=== PATIENT | female | born 1945 | race Caucasian/White ===

== ENCOUNTER 2022-09-10 15:10 | Inpatient (IN) ==
[2022-09-10 15:33] LABS: Basophils # 0.1 10*3/uL (0.0-0.2); Basophils % 0.5 % (0.0-0.8); Eosinophils % 0.2 % (0.00-10.9); Hematocrit 38.5 VOL% (35.7-47.0); Hemoglobin 12.5 GM/DL (12.0-16.0); Immature Granulocytes % 3.9 %; Immature Granulocytes Absolute 0.57 #; Lymphocytes # 2.2 10*3/uL (1.4-4.0); Lymphocytes % 14.8 % (21.3-54.2); Mean Corpuscular HGB Conc 32.5 GM/DL (32-36); Mean Corpuscular Volume 86.1 FL (87-102); Mean Platelet Volume 11.3 FL (9.6-12.0); Monocytes # 1.3 10*3/uL (0.11-0.8); Monocytes % 9.1 % (1.7-12.7); Neutrophils % 71.5 % (38.7-73.9); Platelet Count 333 T/CUMM (130-400); Red Blood Count 4.47 MC/CUMM (3.8-5.5); Red Cell Distribution Width 13.4 % (9.3-17.3); White Blood Count 14.6 T/CUMM (4-12)
[2022-09-10 15:47] LABS: Albumin 2.2 G/DL (3.4-5.0); Bilirubin,Total 0.6 MG/DL (0.20-1.00); Calcium 8.4 MG/DL (8.5-10.1); Osmolality,Calculated 295.8 MOS/KG (273-304); Potassium 3.1 MMOL/L (3.5-5.1); Total Protein 6.2 G/DL (6.4-8.2)
[2022-09-10 16:22] LABS: Lymphocytes 19 % (20-55); Platelet Estimate Normal; Polychromasia Slight; Total Cells Counted 100
[2022-09-10 16:26] LABS: Ovalocytes Slight
[2022-09-10] MEDS ORDERED: PIPERACILLIN/TAZOBACTAM 3,375 MG in SODIUM CHLORIDE 0.9% 100 ML IV STA (16:59)
[2022-09-10] MEDS ORDERED: hydrALAZINE 20 MG/1 ML VIAL IV STA (17:19)
[2022-09-10] MEDS ORDERED: ONDANSETRON 4 MG/2 ML VIAL IV PRN (18:26)
[2022-09-10] MEDS ORDERED: guaiFENesin/CODEINE 5 ML LIQUID PO PRN (18:35)
[2022-09-10] MEDS: SODIUM CHLORIDE 0.9% 1,000 ML IV SCH (18:40)
[2022-09-10] MEDS ORDERED: POTASSIUM BICARB EFFERVESCENT 20 MEQ TAB.EFF PO ONE (18:45)
[2022-09-10] MEDS: ALBUTEROL 2.5 MG/3 ML NEB RESP TX SCH (18:50)
[2022-09-10] MEDS: ACETAMINOPHEN 325 MG TABLET PO PRN (20:00)
[2022-09-10] MEDS: ENOXAPARIN 40 MG/0.4 ML SYRINGE SUBCUT SCH (22:53)
[2022-09-10] MEDS: MIRTAZAPINE 15 MG TABLET PO SCH (22:53)
[2022-09-10] MEDS: CARBIDOPA/LEVODOPA 25-100 MG TABLET PO SCH ×2 (22:53)
[2022-09-10 23:59] LABS: INR 1.1; PT Patient Result 12.4 SECS (10.1-12.1)
[2022-09-11] MEDS: ALBUTEROL 2.5 MG/3 ML NEB RESP TX SCH ×4 (00:23→19:20)
[2022-09-11] MEDS: PIPERACILLIN/TAZOBACTAM 3,375 MG in SODIUM CHLORIDE 0.9% 100 ML IV SCH ×2 (02:47→21:08)
[2022-09-11 06:23] LABS: Basophils # 0.1 10*3/uL (0.0-0.2); Basophils % 0.6 % (0.0-0.8); Eosinophils # 0.1 10*3/uL (0.0-0.87); Eosinophils % 1.4 % (0.00-10.9); Hematocrit 35.7 VOL% (35.7-47.0); Hemoglobin 11.4 GM/DL (12.0-16.0); Lymphocytes # 3.1 10*3/uL (1.4-4.0); Lymphocytes % 30.5 % (21.3-54.2); Mean Corpuscular HGB Conc 31.9 GM/DL (32-36); Mean Corpuscular Volume 87.9 FL (87-102); Mean Platelet Volume 10.7 FL (9.6-12.0); Monocytes # 0.9 10*3/uL (0.11-0.8); Monocytes % 9.2 % (1.7-12.7); Neutrophils % 54.3 % (38.7-73.9); Platelet Count 391 T/CUMM (130-400); Red Blood Count 4.06 MC/CUMM (3.8-5.5); Red Cell Distribution Width 13.5 % (9.3-17.3); White Blood Count 10.1 T/CUMM (4-12)
[2022-09-11 06:26] LABS: Bilirubin,Urine Small mg/dL (Negative); Blood, Urine Negative (Negative); Glucose,Urine (UA) Negative (Negative); Ketones,Urine 15 mg/dL (Negative); Nitrite,Urine Negative (Negative); Protein,Urine 30 mg/dL (Negative); Urine Appearance Slightly Cloudy (Clear); Urine Color Dark Yellow (Yellow); Urine Specific Gravity > 1.030 (1.001-1.035)
[2022-09-11 06:28] LABS: Amorphous Crystals,Urine Occasional /HPF (Few); Mucus,Urine Occasional /LPF (Occasional); RBC,Urine 4 /HPF (0-4); Squamous Epithelial Cell,Urine Moderate /HPF (0-10)
[2022-09-11 06:50] LABS: Alanine Aminotransferase < 6 U/L (13-56); Alkaline Phosphatase 55 U/L (45-117); Aspartate Amino Transferase 11 U/L (0-37); Blood Urea Nitrogen 26 MG/DL (7-18); Calcium 8.5 MG/DL (8.5-10.1); Carbon Dioxide 27 MMOL/L (21-32); Chloride 110 MMOL/L (98-107); Cholesterol 94 MG/DL (50-200); Glucose 138 MG/DL (74-106); HDL Cholesterol 24 MG/DL (40-60); Osmolality,Calculated 294.7 MOS/KG (273-304); Potassium 2.9 MMOL/L (3.5-5.1); Risk Ratio 3.92; Sodium 145 MMOL/L (136-145); Thyroid Stimulating Hormone 0.848 uIU/ml (0.358-3.74); Total Protein 6.4 G/DL (6.4-8.2); Triglycerides 93 MG/DL (2-150); VLDL Cholesterol 18.6 MG/DL
[2022-09-11] MEDS ORDERED: SPIRONOLACTONE 25 MG TABLET PO SCH (09:00)
[2022-09-11] MEDS: POTASSIUM CHLORIDE RIDER 10 MEQ/100 ML PREMIX IV PRN ×5 (09:27→17:24)
[2022-09-11] MEDS ORDERED: POTASSIUM BICARB EFFERVESCENT 20 MEQ TAB.EFF PO ONE (09:30)
[2022-09-11] MEDS: SODIUM CHLORIDE 0.9% 1,000 ML IV SCH (10:00)
[2022-09-11] MEDS: PANTOPRAZOLE 40 MG TABLET PO SCH (15:11)
[2022-09-11] MEDS: ALPRAZolam 0.25 MG TABLET PO SCH ×3 (15:11→21:47)
[2022-09-11] MEDS: CARBIDOPA/LEVODOPA 25-100 MG TABLET PO SCH ×4 (15:12→23:45)
[2022-09-11] MEDS: lisinopriL 20 MG TABLET PO SCH (15:12)
[2022-09-11] MEDS: AMANTADINE 100 MG CAPSULE PO SCH ×2 (15:12→21:08)
[2022-09-11] MEDS: INSULIN LISPRO 100 UNIT/ML SUBCUT SCH (17:16)
[2022-09-11] MEDS: MIRTAZAPINE 15 MG TABLET PO SCH (21:08)
[2022-09-11] MEDS: ENOXAPARIN 40 MG/0.4 ML SYRINGE SUBCUT SCH (21:08)
[2022-09-12] MEDS: ALBUTEROL 2.5 MG/3 ML NEB RESP TX SCH ×4 (00:04→19:37)
[2022-09-12] MEDS: INSULIN LISPRO 100 UNIT/ML SUBCUT SCH ×4 (00:37→18:48)
[2022-09-12] MEDS: SODIUM CHLORIDE 0.9% 1,000 ML IV SCH ×2 (02:14→15:47)
[2022-09-12] MEDS: PIPERACILLIN/TAZOBACTAM 3,375 MG in SODIUM CHLORIDE 0.9% 100 ML IV SCH ×2 (04:15→20:54)
[2022-09-12 05:28] LABS: Alanine Aminotransferase < 6 U/L (13-56); Albumin 2.1 G/DL (3.4-5.0); Alkaline Phosphatase 53 U/L (45-117); Aspartate Amino Transferase 9 U/L (0-37); Blood Urea Nitrogen 19 MG/DL (7-18); Calcium 8.6 MG/DL (8.5-10.1); Carbon Dioxide 27 MMOL/L (21-32); Chloride 110 MMOL/L (98-107); Glucose 108 MG/DL (74-106); Osmolality,Calculated 290.7 MOS/KG (273-304); Potassium 3.4 MMOL/L (3.5-5.1); Sodium 145 MMOL/L (136-145); Total Protein 6.6 G/DL (6.4-8.2)
[2022-09-12] MEDS ORDERED: TUBERCULIN SKIN TEST 0.1 ML SYRINGE INTRADERM ONE (09:30)
[2022-09-12] MEDS: POTASSIUM CHLORIDE RIDER 10 MEQ/100 ML PREMIX IV PRN ×3 (09:43→15:45)
[2022-09-12] MEDS: ALPRAZolam 0.25 MG TABLET PO SCH ×2 (09:44→20:55)
[2022-09-12] MEDS: lisinopriL 20 MG TABLET PO SCH (09:44)
[2022-09-12] MEDS: CARBIDOPA/LEVODOPA 25-100 MG TABLET PO SCH ×4 (09:44→20:56)
[2022-09-12] MEDS: PANTOPRAZOLE 40 MG TABLET PO SCH (09:44)
[2022-09-12] MEDS: AMANTADINE 100 MG CAPSULE PO SCH ×2 (09:44→20:56)
[2022-09-12] MEDS ORDERED: amLODIPine 5 MG TABLET PO ONE (13:15)
[2022-09-12] MEDS: ENOXAPARIN 40 MG/0.4 ML SYRINGE SUBCUT SCH (20:55)
[2022-09-12] MEDS: MIRTAZAPINE 15 MG TABLET PO SCH (20:56)
[2022-09-13] MEDS: ALBUTEROL 2.5 MG/3 ML NEB RESP TX SCH ×5 (00:33→23:52)
[2022-09-13] MEDS: INSULIN LISPRO 100 UNIT/ML SUBCUT SCH ×4 (01:04→17:41)
[2022-09-13] MEDS: PIPERACILLIN/TAZOBACTAM 3,375 MG in SODIUM CHLORIDE 0.9% 100 ML IV SCH ×3 (04:13→21:40)
[2022-09-13] MEDS: hydrALAZINE 20 MG/1 ML VIAL IV PRN (04:46)
[2022-09-13 05:15] LABS: Basophils # 0.1 10*3/uL (0.0-0.2); Basophils % 0.7 % (0.0-0.8); Eosinophils # 0.2 10*3/uL (0.0-0.87); Eosinophils % 2.6 % (0.00-10.9); Hematocrit 34.3 VOL% (35.7-47.0); Hemoglobin 10.7 GM/DL (12.0-16.0); Immature Granulocytes % 2.9 %; Immature Granulocytes Absolute 0.24 #; Lymphocytes # 3.1 10*3/uL (1.4-4.0); Lymphocytes % 36.9 % (21.3-54.2); Mean Corpuscular HGB Conc 31.2 GM/DL (32-36); Mean Corpuscular Volume 89.3 FL (87-102); Mean Platelet Volume 10.3 FL (9.6-12.0); Monocytes # 0.8 10*3/uL (0.11-0.8); Monocytes % 8.9 % (1.7-12.7); Platelet Count 347 T/CUMM (130-400); Red Blood Count 3.84 MC/CUMM (3.8-5.5); Red Cell Distribution Width 13.7 % (9.3-17.3); White Blood Count 8.4 T/CUMM (4-12)
[2022-09-13 05:42] LABS: Alanine Aminotransferase < 6 U/L (13-56); Albumin 1.9 G/DL (3.4-5.0); Alkaline Phosphatase 50 U/L (45-117); Aspartate Amino Transferase 9 U/L (0-37); Blood Urea Nitrogen 13 MG/DL (7-18); Calcium 8.2 MG/DL (8.5-10.1); Carbon Dioxide 27 MMOL/L (21-32); Chloride 110 MMOL/L (98-107); Glucose 115 MG/DL (74-106); Osmolality,Calculated 286.8 MOS/KG (273-304); Potassium 3.4 MMOL/L (3.5-5.1); Sodium 144 MMOL/L (136-145); Total Protein 6.3 G/DL (6.4-8.2)
[2022-09-13] MEDS ORDERED: POTASSIUM BICARB EFFERVESCENT 20 MEQ TAB.EFF PO ONE (07:46)
[2022-09-13] MEDS: AMANTADINE 100 MG CAPSULE PO SCH ×2 (09:58→21:39)
[2022-09-13] MEDS: CARBIDOPA/LEVODOPA 25-100 MG TABLET PO SCH ×4 (09:58→21:39)
[2022-09-13] MEDS: lisinopriL 20 MG TABLET PO SCH (09:58)
[2022-09-13] MEDS: ALPRAZolam 0.25 MG TABLET PO SCH ×2 (09:58→21:39)
[2022-09-13] MEDS: amLODIPine 5 MG TABLET PO SCH (09:58)
[2022-09-13] MEDS: PANTOPRAZOLE 40 MG TABLET PO SCH (09:59)
[2022-09-13] MEDS: SODIUM CHLORIDE 0.9% 1,000 ML IV SCH (12:07)
[2022-09-13] MEDS: ENOXAPARIN 40 MG/0.4 ML SYRINGE SUBCUT SCH (21:39)
[2022-09-13] MEDS: MIRTAZAPINE 15 MG TABLET PO SCH (21:40)
[2022-09-14] MEDS: ALBUTEROL 2.5 MG/3 ML NEB RESP TX SCH ×3 (01:15→19:35)
[2022-09-14] MEDS: INSULIN LISPRO 100 UNIT/ML SUBCUT SCH ×4 (02:38→17:31)
[2022-09-14] MEDS: PIPERACILLIN/TAZOBACTAM 3,375 MG in SODIUM CHLORIDE 0.9% 100 ML IV SCH ×3 (03:36→20:50)
[2022-09-14 06:01] LABS: Basophils # 0.1 10*3/uL (0.0-0.2); Basophils % 0.7 % (0.0-0.8); Eosinophils # 0.2 10*3/uL (0.0-0.87); Eosinophils % 2.7 % (0.00-10.9); Hematocrit 36.1 VOL% (35.7-47.0); Hemoglobin 11.4 GM/DL (12.0-16.0); Immature Granulocytes Absolute 0.14 #; Lymphocytes # 2.6 10*3/uL (1.4-4.0); Lymphocytes % 35.9 % (21.3-54.2); Mean Corpuscular HGB Conc 31.6 GM/DL (32-36); Mean Corpuscular Volume 89.8 FL (87-102); Mean Platelet Volume 10.6 FL (9.6-12.0); Monocytes # 0.7 10*3/uL (0.11-0.8); Monocytes % 9.7 % (1.7-12.7); Platelet Count 337 T/CUMM (130-400); Red Blood Count 4.02 MC/CUMM (3.8-5.5); Red Cell Distribution Width 13.7 % (9.3-17.3); White Blood Count 7.2 T/CUMM (4-12)
[2022-09-14 06:23] LABS: Alanine Aminotransferase < 6 U/L (13-56); Albumin 2.1 G/DL (3.4-5.0); Alkaline Phosphatase 49 U/L (45-117); Aspartate Amino Transferase 15 U/L (0-37); Blood Urea Nitrogen 10 MG/DL (7-18); Calcium 8.5 MG/DL (8.5-10.1); Carbon Dioxide 27 MMOL/L (21-32); Chloride 111 MMOL/L (98-107); Glucose 114 MG/DL (74-106); Osmolality,Calculated 282.1 MOS/KG (273-304); Potassium 3.6 MMOL/L (3.5-5.1); Sodium 142 MMOL/L (136-145); Total Protein 6.4 G/DL (6.4-8.2)
[2022-09-14] MEDS: PANTOPRAZOLE 40 MG TABLET PO SCH (08:45)
[2022-09-14] MEDS: ALPRAZolam 0.25 MG TABLET PO SCH ×2 (08:45→20:50)
[2022-09-14] MEDS: AMANTADINE 100 MG CAPSULE PO SCH ×2 (08:45→20:50)
[2022-09-14] MEDS: amLODIPine 5 MG TABLET PO SCH (08:45)
[2022-09-14] MEDS: lisinopriL 20 MG TABLET PO SCH (08:45)
[2022-09-14] MEDS: CARBIDOPA/LEVODOPA 25-100 MG TABLET PO SCH ×4 (08:45→20:50)
[2022-09-14] MEDS: ACETAMINOPHEN 325 MG TABLET PO PRN (15:48)
[2022-09-14] MEDS: ENOXAPARIN 40 MG/0.4 ML SYRINGE SUBCUT SCH (20:50)
[2022-09-14] MEDS: MIRTAZAPINE 15 MG TABLET PO SCH (20:51)
[2022-09-15] MEDS: ALBUTEROL 2.5 MG/3 ML NEB RESP TX SCH ×3 (00:40→14:11)
[2022-09-15] MEDS: INSULIN LISPRO 100 UNIT/ML SUBCUT SCH ×5 (01:04→23:36)
[2022-09-15] MEDS: PIPERACILLIN/TAZOBACTAM 3,375 MG in SODIUM CHLORIDE 0.9% 100 ML IV SCH ×3 (03:54→20:25)
[2022-09-15 06:25] LABS: Basophils # 0.1 10*3/uL (0.0-0.2); Eosinophils # 0.2 10*3/uL (0.0-0.87); Eosinophils % 3.2 % (0.00-10.9); Hematocrit 35.9 VOL% (35.7-47.0); Hemoglobin 11.6 GM/DL (12.0-16.0); Immature Granulocytes % 1.4 %; Immature Granulocytes Absolute 0.09 #; Lymphocytes # 2.1 10*3/uL (1.4-4.0); Lymphocytes % 33.3 % (21.3-54.2); Mean Corpuscular HGB Conc 32.3 GM/DL (32-36); Mean Corpuscular Volume 87.8 FL (87-102); Mean Platelet Volume 10.7 FL (9.6-12.0); Monocytes # 0.6 10*3/uL (0.11-0.8); Monocytes % 9.2 % (1.7-12.7); Neutrophils % 51.9 % (38.7-73.9); Platelet Count 356 T/CUMM (130-400); Red Blood Count 4.09 MC/CUMM (3.8-5.5); Red Cell Distribution Width 13.9 % (9.3-17.3); White Blood Count 6.3 T/CUMM (4-12)
[2022-09-15 06:46] LABS: Alanine Aminotransferase < 6 U/L (13-56); Albumin 2.1 G/DL (3.4-5.0); Alkaline Phosphatase 52 U/L (45-117); Aspartate Amino Transferase 18 U/L (0-37); Blood Urea Nitrogen 9 MG/DL (7-18); Calcium 8.5 MG/DL (8.5-10.1); Carbon Dioxide 27 MMOL/L (21-32); Chloride 111 MMOL/L (98-107); Glucose 91 MG/DL (74-106); Osmolality,Calculated 284.8 MOS/KG (273-304); Potassium 3.5 MMOL/L (3.5-5.1); Sodium 144 MMOL/L (136-145); Total Protein 6.8 G/DL (6.4-8.2)
[2022-09-15] MEDS: amLODIPine 5 MG TABLET PO SCH (08:21)
[2022-09-15] MEDS: AMANTADINE 100 MG CAPSULE PO SCH ×2 (08:21→20:16)
[2022-09-15] MEDS: lisinopriL 20 MG TABLET PO SCH (08:21)
[2022-09-15] MEDS: ALPRAZolam 0.25 MG TABLET PO SCH ×2 (08:21→20:16)
[2022-09-15] MEDS: PANTOPRAZOLE 40 MG TABLET PO SCH (08:21)
[2022-09-15] MEDS: hydrALAZINE 20 MG/1 ML VIAL IV PRN (08:22)
[2022-09-15] MEDS: CARBIDOPA/LEVODOPA 25-100 MG TABLET PO SCH ×4 (08:22→20:16)
[2022-09-15] MEDS: POTASSIUM CHLORIDE 20 MEQ TABLET PO PRN ×2 (09:20→13:27)
[2022-09-15] MEDS: ACETAMINOPHEN 325 MG TABLET PO PRN (13:23)
[2022-09-15 16:06] LABS: Mycoplasma pneumoniae Ab Inter SEE COMMENTS; Mycoplasma pneumoniae Ab, IgG Positive (Negative); Mycoplasma pneumoniae Ab, IgM Negative (Negative)
[2022-09-15] MEDS: ENOXAPARIN 40 MG/0.4 ML SYRINGE SUBCUT SCH (20:16)
[2022-09-15] MEDS: MIRTAZAPINE 15 MG TABLET PO SCH (20:16)
[2022-09-16] MEDS: ALBUTEROL 2.5 MG/3 ML NEB RESP TX SCH ×5 (00:15→19:52)
[2022-09-16] MEDS: PIPERACILLIN/TAZOBACTAM 3,375 MG in SODIUM CHLORIDE 0.9% 100 ML IV SCH ×2 (04:45→12:26)
[2022-09-16 06:22] LABS: Basophils # 0.1 10*3/uL (0.0-0.2); Basophils % 1.1 % (0.0-0.8); Eosinophils # 0.2 10*3/uL (0.0-0.87); Eosinophils % 3.4 % (0.00-10.9); Hematocrit 37.5 VOL% (35.7-47.0); Hemoglobin 11.7 GM/DL (12.0-16.0); Immature Granulocytes % 1.3 %; Immature Granulocytes Absolute 0.07 #; Lymphocytes # 1.8 10*3/uL (1.4-4.0); Lymphocytes % 34.7 % (21.3-54.2); Mean Corpuscular HGB Conc 31.2 GM/DL (32-36); Mean Corpuscular Volume 89.5 FL (87-102); Mean Platelet Volume 10.4 FL (9.6-12.0); Monocytes # 0.6 10*3/uL (0.11-0.8); Monocytes % 11.2 % (1.7-12.7); Neutrophils % 48.3 % (38.7-73.9); Platelet Count 398 T/CUMM (130-400); Red Blood Count 4.19 MC/CUMM (3.8-5.5); Red Cell Distribution Width 14.1 % (9.3-17.3); White Blood Count 5.3 T/CUMM (4-12)
[2022-09-16 06:55] LABS: Alanine Aminotransferase < 9 U/L (13-56); Albumin 2.4 G/DL (3.4-5.0); Alkaline Phosphatase 56 U/L (45-117); Aspartate Amino Transferase 18 U/L (0-37); Blood Urea Nitrogen 13 MG/DL (7-18); Calcium 8.8 MG/DL (8.5-10.1); Carbon Dioxide 25 MMOL/L (21-32); Chloride 112 MMOL/L (98-107); Glucose 94 MG/DL (74-106); Sodium 143 MMOL/L (136-145); Total Protein 7.2 G/DL (6.4-8.2)
[2022-09-16] MEDS: INSULIN LISPRO 100 UNIT/ML SUBCUT SCH ×3 (07:24→18:56)
[2022-09-16] MEDS: CARBIDOPA/LEVODOPA 25-100 MG TABLET PO SCH ×4 (08:51→20:16)
[2022-09-16] MEDS: PANTOPRAZOLE 40 MG TABLET PO SCH (08:51)
[2022-09-16] MEDS: ALPRAZolam 0.25 MG TABLET PO SCH ×2 (08:51→20:16)
[2022-09-16] MEDS: lisinopriL 20 MG TABLET PO SCH (08:51)
[2022-09-16] MEDS: AMANTADINE 100 MG CAPSULE PO SCH ×2 (08:51→20:16)
[2022-09-16] MEDS: amLODIPine 5 MG TABLET PO SCH (08:51)
[2022-09-16] MEDS: MIRTAZAPINE 15 MG TABLET PO SCH (20:16)
[2022-09-16] MEDS: ENOXAPARIN 40 MG/0.4 ML SYRINGE SUBCUT SCH (20:16)
[2022-09-17] MEDS: INSULIN LISPRO 100 UNIT/ML SUBCUT SCH ×4 (00:45→17:46)
[2022-09-17] MEDS: ALBUTEROL 2.5 MG/3 ML NEB RESP TX SCH ×4 (02:13→19:58)
[2022-09-17 05:39] LABS: Basophils # 0.1 10*3/uL (0.0-0.2); Eosinophils # 0.2 10*3/uL (0.0-0.87); Eosinophils % 3.7 % (0.00-10.9); Hematocrit 36.4 VOL% (35.7-47.0); Hemoglobin 11.4 GM/DL (12.0-16.0); Immature Granulocytes Absolute 0.06 #; Lymphocytes # 2.3 10*3/uL (1.4-4.0); Mean Corpuscular HGB Conc 31.3 GM/DL (32-36); Mean Corpuscular Volume 91.7 FL (87-102); Mean Platelet Volume 10.7 FL (9.6-12.0); Monocytes # 0.7 10*3/uL (0.11-0.8); Monocytes % 11.7 % (1.7-12.7); Neutrophils % 44.6 % (38.7-73.9); Platelet Count 385 T/CUMM (130-400); Red Blood Count 3.97 MC/CUMM (3.8-5.5); Red Cell Distribution Width 14.3 % (9.3-17.3)
[2022-09-17 06:07] LABS: Alanine Aminotransferase < 6 U/L (13-56); Albumin 2.4 G/DL (3.4-5.0); Alkaline Phosphatase 53 U/L (45-117); Aspartate Amino Transferase 17 U/L (0-37); Bilirubin,Total < 0.39 MG/DL (0.20-1.00); Blood Urea Nitrogen 18 MG/DL (7-18); Calcium 8.9 MG/DL (8.5-10.1); Carbon Dioxide 26 MMOL/L (21-32); Chloride 114 MMOL/L (98-107); Glucose 107 MG/DL (74-106); Osmolality,Calculated 287.8 MOS/KG (273-304); Potassium 3.7 MMOL/L (3.5-5.1); Sodium 144 MMOL/L (136-145); Total Protein 6.8 G/DL (6.4-8.2)
[2022-09-17] MEDS: POTASSIUM CHLORIDE 20 MEQ TABLET PO PRN (09:01)
[2022-09-17] MEDS: lisinopriL 20 MG TABLET PO SCH (09:01)
[2022-09-17] MEDS: CARBIDOPA/LEVODOPA 25-100 MG TABLET PO SCH ×4 (09:01→20:25)
[2022-09-17] MEDS: amLODIPine 5 MG TABLET PO SCH (09:01)
[2022-09-17] MEDS: PANTOPRAZOLE 40 MG TABLET PO SCH (09:01)
[2022-09-17] MEDS: AMANTADINE 100 MG CAPSULE PO SCH ×2 (09:02→20:26)
[2022-09-17] MEDS: ALPRAZolam 0.25 MG TABLET PO SCH ×2 (09:02→20:25)
[2022-09-17] MEDS: MIRTAZAPINE 15 MG TABLET PO SCH (20:25)
[2022-09-17] MEDS: ENOXAPARIN 40 MG/0.4 ML SYRINGE SUBCUT SCH (20:26)
[2022-09-18] MEDS: ALBUTEROL 2.5 MG/3 ML NEB RESP TX SCH ×4 (00:30→19:04)
[2022-09-18] MEDS: INSULIN LISPRO 100 UNIT/ML SUBCUT SCH ×4 (01:09→17:02)
[2022-09-18] MEDS: AMANTADINE 100 MG CAPSULE PO SCH (08:28)
[2022-09-18] MEDS: amLODIPine 5 MG TABLET PO SCH (08:28)
[2022-09-18] MEDS: lisinopriL 20 MG TABLET PO SCH (08:28)
[2022-09-18] MEDS: CARBIDOPA/LEVODOPA 25-100 MG TABLET PO SCH ×3 (08:28→17:29)
[2022-09-18] MEDS: ALPRAZolam 0.25 MG TABLET PO SCH (08:28)
[2022-09-18] MEDS: PANTOPRAZOLE 40 MG TABLET PO SCH (08:28)
[2022-09-18] MEDS ORDERED: hydrALAZINE 10 MG TABLET PO SCH (09:00)
[2022-09-18 21:14] VITALS: BP 147/80
== END 2022-09-18 21:02 | DRG 177 ==
LOC: EDBD → EDUNIT# → N.ED 15:10 → N.EDINP 18:37 → SUATTDRO 18:37 → N.EDINP 20:20 → N.3E 21:04
PROVIDERS: ADMIT Family Medicine; ATTEND Family Medicine